=== PATIENT | female | born 1975 | race Caucasian/White ===

== ENCOUNTER → 2021-08-01 | Outpatient (CLI) | payer OTHER ==
[2021-08-02 20:21] LABS: Campylobacter Sp Not Detected (NOT DETECT); Enterotoxigenic E. coli-ETEC Detected (NOT DETECT); Plesiomonas Shigelloides Not Detected (NOT DETECT); Salmonella Sp Detected (NOT DETECT); Shiga Toxin-prod E. coli-STEC Detected (NOT DETECT); Yersinia Enterocolitica Detected (NOT DETECT)
[2021-08-02 20:22] LABS: Adenovirus F 40/41 Not Detected (NOT DETECT); Astrovirus Not Detected (NOT DETECT); Cryptosporidium Not Detected (NOT DETECT); Cyclospora Cayetanensis Not Detected (NOT DETECT); E. Coli O157 Not Detected (NOT DETECT); Entamoeba Histolytica Not Detected (NOT DETECT); Enteroaggregative E. coli-EAEC Not Detected (NOT DETECT); Enteropathogenic E. coli-EPEC Not Detected (NOT DETECT); Giardia Lamblia Not Detected (NOT DETECT); Norovirus GI/GII Not Detected (NOT DETECT); Rotavirus A Not Detected (NOT DETECT); Sapovirus Not Detected (NOT DETECT); Shigella/Enteroin E. coli-EIEC Not Detected (NOT DETECT); Vibrio Cholerae Not Detected (NOT DETECT); Vibrio Sp Not Detected (NOT DETECT)
== END | disposition home or self-care (01) ==
LOC: LAB SHORT 07:00
PROVIDERS: Nurse Practitioner Family
DX: K52.9 Noninfective gastroenteritis and colitis, unspecified (principal)
CPT/HCPCS: 87507